=== PATIENT | male | born 1960 | race Caucasian/White ===

== ENCOUNTER → 2016-10-22 | Outpatient (CLI) | payer BC | LOC: BHSO 09:34 | DX: F31.81 Bipolar II disorder (principal) ==

== ENCOUNTER → 2016-12-31 | Outpatient (CLI) | payer BC | LOC: BHSO 15:27 | DX: F31.74 Bipolar disorder, in full remission, most recent episode manic (principal) ==

== ENCOUNTER → 2017-03-17 | Outpatient (CLI) | payer BC | LOC: BHSO 10:25 | DX: F31.73 Bipolar disorder, in partial remission, most recent episode manic (principal) ==

== ENCOUNTER → 2017-06-13 | Outpatient (CLI) | payer BC | LOC: BHSO 11:31 | DX: F31.73 Bipolar disorder, in partial remission, most recent episode manic (principal) ==

== ENCOUNTER → 2017-09-15 | Outpatient (CLI) | payer BC | LOC: BHSO 11:19 | DX: F31.73 Bipolar disorder, in partial remission, most recent episode manic (principal) ==